=== PATIENT | female | born 1970 | race Two or more races ===

== ENCOUNTER 2024-11-11 16:11 | Emergency (ER) | payer OTHER ==
[~2024-11-11] VITALS: Ht 149.9 cm; Wt 70.8 kg
[2024-11-11] MEDS ORDERED: METFORMIN HCL500 M3 (16:36)
[2024-11-11] MEDS ORDERED: FAMOTIDINE/PF 20 MG in 0.9 % SODIUM CHLORIDE 8 ML IV PUSH STA (18:08)
[2024-11-11] MEDS ORDERED: ONDANSETRON HCL 2 MG/ML VIAL IV STA (18:08)
[2024-11-11] MEDS ORDERED: 0.9 % SODIUM CHLORIDE 1,000 ML IV STA (18:08)
[2024-11-11] MEDS ORDERED: FAMOTIDINE/PF 20 MG/2 ML VIAL ONE (18:18)
[2024-11-11] MEDS ORDERED: ONDANSETRON HCL 2 MG/ML VIAL ONE (18:18)
[2024-11-11 19:11] LABS: CALCIUM 8.3 mg/dL (8.5-10.1); CREATININE SERUM 0.75 mg/dL (0.55-1.02); GFR 80.53; POTASSIUM 3.81 mEq/L (3.5-5.1)
[2024-11-11 19:18] LABS: RED BLOOD COUNT 4.77 M/uL (3.93-5.22)
[2024-11-11 19:19] LABS: BASO % 0.2 % (0.1-1.2); HEMATOCRIT 40.6 % (34.1-44.9); HEMOGLOBIN 13.4 g/dL (11.2-15.7); LYMPH # 0.83 (1.18-3.74); LYMPH % 7.8 % (19.3-53.1); MEAN CORPUSCULAR HEMOGLOBIN 28.1 pg (25.6-32.2); MONO # 0.81 (0.24-0.82); MONO % 7.6 % (4.7-12.5); NEUT # 8.93 (1.56-6.13); PLATELET COUNT 269 K/uL (163-369)
[2024-11-11 19:31] LABS: URINE APPEARANCE Clear; URINE BILIRRUBIN Negative (NEGATIVE); URINE BLOOD Small; URINE COLOR Yellow; URINE GLUCOSE Negative (NEGATIVE); URINE KETONE Negative (NEGATIVE); URINE LEUKOCYTE Trace; URINE NITRATE Negative; URINE PROTEIN Trace (NEGATIVE)
[2024-11-11 19:34] LABS: URINE BACTERIA 80.7 uL (0.0-1933); URINE RBC 223.4 uL (0.0-20.8); URINE WBC 6.9 uL (0.0-23.2)
[2024-11-11 19:38] LABS: RED CELL DISTRIBUTION WIDTH 11.8 % (11.6-14.4)
[2024-11-11 19:54] LABS: URINE CAST 0.14 uL (0.0-1.40)
== END 2024-11-11 22:26 | disposition home or self-care (01) ==
LOC: ER 16:11
PROVIDERS: Emergency Medicine
DX: K52.89 Other specified noninfective gastroenteritis and colitis (principal); I10 Essential (primary) hypertension; E11.9 Type 2 diabetes mellitus without complications; Z79.84 Long term (current) use of oral hypoglycemic drugs

== ENCOUNTER 2024-11-27 11:01 | Emergency (ER) | payer OTHER ==
[~2024-11-27] VITALS: Ht 149.9 cm; Wt 84.4 kg
[~2024-11-27 11:01] MED LIST: METFORMIN HCL500 M3
[2024-11-27 12:14] VITALS: BP 132/73; O2SAT 98
[2024-11-27] MEDS ORDERED: FAMOtidine 10 MG/ML (4ML VIAL) IV ONE (13:00)
[2024-11-27] MEDS ORDERED: BENZONATATE 200 MG CAPSULE PO ONE (13:15)
[2024-11-27] MEDS ORDERED: CEFTRIAXONE SODIUM 1,000 MG VIAL IV ONE (13:15)
[2024-11-27] MEDS ORDERED: LEVALBUTEROL HCL 1.25 MG/3 ML SOLUTION IH ONE (13:15)
[2024-11-27] MEDS ORDERED: METHYLPREDNISOLONE SOD SUCC 125 MG VIAL IV ONE (13:15)
[2024-11-27] MEDS ORDERED: 0.9 % SODIUM CHLORIDE 1,000 ML IV ONE (13:15)
[2024-11-27] MEDS ORDERED: CEFTRIAXONE SODIUM 1,000 MG VIAL ONE (13:16)
[2024-11-27] MEDS ORDERED: FAMOTIDINE/PF 20 MG/2 ML VIAL ONE (13:16)
[2024-11-27] MEDS ORDERED: METHYLPREDNISOLONE SOD SUCC 125 MG VIAL ONE (13:16)
[2024-11-27] MEDS ORDERED: LEVALBUTEROL HCL 0.63 MG/3 ML SOLUTION IH ONE (13:34)
[2024-11-27 13:35] LABS: BASO % 0.2 % (0.1-1.2); EOS # 0.01 (0.04-0.54); EOS % 0.1 % (0.7-7.0); HEMATOCRIT 36.7 % (34.1-44.9); HEMOGLOBIN 12.5 g/dL (11.2-15.7); LYMPH # 0.36 (1.18-3.74); LYMPH % 3.2 % (19.3-53.1); MEAN CORPUSCULAR HEMOGLOBIN 28.3 pg (25.6-32.2); MONO # 1.03 (0.24-0.82); MONO % 9.1 % (4.7-12.5); NEUT # 9.87 (1.56-6.13); NEUT % 86.9 % (34.0-71.1); PLATELET COUNT 329 K/uL (163-369); RED BLOOD COUNT 4.41 M/uL (3.93-5.22); RED CELL DISTRIBUTION WIDTH 13.9 % (11.6-14.4)
[2024-11-27 14:04] LABS: COVID-19 AG NEGATIVE (NEGATIVE)
[2024-11-27 14:05] LABS: INFLUENZA A AG POSITIVE (NEGATIVE); INFLUENZA B AG NEGATIVE (NEGATIVE)
[2024-11-27 14:06] LABS: ALBUMIN 3.4 gm/dL (3.4-5.0); BILIRUBIN TOTAL 0.39 mg/dL (0.3-1.2); CALCIUM 8.6 mg/dL (8.5-10.1); CREATININE SERUM 0.95 mg/dL (0.55-1.02); GFR 61.3; GLOBULINA 4.5 G/DL (2.4-3.5); POTASSIUM 3.8 mEq/L (3.5-5.1); TOTAL PROTEIN 7.9 gm/dL (6.4-8.2)
[2024-11-27] MEDS ORDERED: BENZONATATE200 M1 PO (14:27)
[2024-11-27] MEDS ORDERED: LEVALBUTER0.63 MG/3 IH (14:27)
[2024-11-27] MEDS ORDERED: SINGULAIR10 MG PO (14:27)
[2024-11-27] MEDS ORDERED: PEPCID AC20 MG PO (14:27)
[2024-11-27] MEDS ORDERED: OSEL75CA PO (14:27)
== END 2024-11-27 14:42 | disposition home or self-care (01) ==
LOC: EMR PED 11:01 → ER 11:10
PROVIDERS: General Practice
DX: J10.1 Influenza due to other identified influenza virus with other respiratory manifestations (principal); R05.8 Other specified cough; Z20.822 Contact with and (suspected) exposure to COVID-19; E11.9 Type 2 diabetes mellitus without complications; Z79.84 Long term (current) use of oral hypoglycemic drugs; Z85.3 Personal history of malignant neoplasm of breast